=== PATIENT | male | born 1985 | race Caucasian/White ===

== ENCOUNTER → 2021-01-15 | Outpatient (CLI) | payer OTHER ==
[~2021-01-15] MED LIST: ASPIR 8181 MG PO; CARDURA8 MG PO; CLONIDINE HCL0.2 MG PO; COMBIVENT RESPIM4 GM INH; COZAAR 25MG TAB25 MG PO; HYDRALAZINE HC100 MG PO; HYDROCHLOROTHIA25 MG PO; IMDUR ER TAB 6060 MG PO; ISOSORBIDE MON120 MG PO; ISOSORBIDE MONO30 MG PO; LISINOPRIL40 MG PO; METOPROLOL TAR100 MG PO; MINIPRES CAP 2 M2 MG PO; NITROSTAT 0.40.4 MG SL; NORVASC10 MG PO; OXYBUTYNIN CHLO10 MG PO; SEROQUEL25 MG PO; SIMVASTATIN20 MG PO; TROSPIUM CHLORI20 MG PO; VITAMIN D350000 UNIT PO
== END ==
LOC: ECHO 09:00 → NM 09:00 → ECHO 10:46
DX: I71.9 Aortic aneurysm of unspecified site, without rupture (principal); R07.89 Other chest pain; I51.7 Cardiomegaly; R93.1 Abnormal findings on diagnostic imaging of heart and coronary circulation
CPT/HCPCS: ECHO; 93306

== ENCOUNTER → 2021-01-26 | Outpatient (CLI) | payer OTHER | LOC: CT 01-18 11:00 | DX: I71.2 Thoracic aortic aneurysm, without rupture (principal); R07.9 Chest pain, unspecified; R93.89 Abnormal findings on diagnostic imaging of other specified body structures | CPT/HCPCS: 36415; 71275; 82565; Q9967 ==

== ENCOUNTER 2021-03-27 14:27 | Observation (INO) | payer OTHER ==
[~2021-03-27] VITALS: Ht 180.3 cm; Wt 132.1 kg
[~2021-03-27 14:27] MED LIST changes: -COZAAR 25MG TAB25 MG PO; -ISOSORBIDE MON120 MG PO; -MINIPRES CAP 2 M2 MG PO; -SEROQUEL25 MG PO
[2021-03-27 15:44] LABS: HEMOGLOBIN 16.2 gm/dl (14.0-17.5); RED BLOOD COUNT 5.16 M/UL (4.20-5.50); WHITE BLOOD COUNT 6.3 K/UL (4.5-11.0)
[2021-03-27 17:03] LABS: BUN/CREATININE RATIO 14 (0-10)
[2021-03-27] MEDS ORDERED: SEROQUEL25 MG PO (23:21)
[2021-03-27] MEDS ORDERED: ISOSORBIDE MON120 MG PO (23:23)
[2021-03-27] MEDS ORDERED: MINIPRES CAP 2 M2 MG PO (23:24)
[2021-03-28] MEDS ORDERED: COZAAR 25MG TAB25 MG PO (12:27)
== END 2021-03-28 13:52 | disposition home or self-care (01) ==
LOC: ER1 14:27 → CDU 21:46 → M/S 21:46
PROVIDERS: Emergency Medicine; ADMIT Internal Medicine
DX: R07.89 Other chest pain (principal); I10 Essential (primary) hypertension; E66.01 Morbid (severe) obesity due to excess calories; I51.7 Cardiomegaly; J44.9 Chronic obstructive pulmonary disease, unspecified; F17.290 Nicotine dependence, other tobacco product, uncomplicated; F41.8 Other specified anxiety disorders; G47.33 Obstructive sleep apnea (adult) (pediatric); Z82.49 Family history of ischemic heart disease and other diseases of the circulatory system; Z82.3 Family history of stroke; Z99.81 Dependence on supplemental oxygen; Z79.899 Other long term (current) drug therapy; Z20.822 Contact with and (suspected) exposure to COVID-19; Z68.41 Body mass index [BMI] 40.0-44.9, adult
CPT/HCPCS: 36415; 71045; 71275; 80053; 80061; 82550; 82553; 83735; 83874; 83880; 84484; 85025; 85610; 85730; 93005; 99285; G0378; Q9967; U0002

== ENCOUNTER → 2021-09-14 | Outpatient (CLI) | payer OTHER ==
[~2021-09-14] MED LIST changes: +COZAAR 25MG TAB25 MG PO; +ISOSORBIDE MON120 MG PO; +MINIPRES CAP 2 M2 MG PO; +SEROQUEL25 MG PO
== END ==
LOC: CT 10:29
DX: I71.9 Aortic aneurysm of unspecified site, without rupture (principal); R91.8 Other nonspecific abnormal finding of lung field
CPT/HCPCS: 36415; 71275; 82565; Q9967

== ENCOUNTER → 2021-12-02 | Outpatient (CLI) | payer OTHER ==
[~2021-12-02] MED LIST changes: +ABILIFY 5 MG TAB5 MG PO; +ALISKIREN150 MG PO; +METOPROLOL TART50 MG PO
== END ==
LOC: EXRD 11:30
DX: N50.89 Other specified disorders of the male genital organs (principal); R93.812 Abnormal radiologic findings on diagnostic imaging of left testicle
CPT/HCPCS: 76870

== ENCOUNTER 2021-12-06 14:17 | Inpatient (IN) | payer OTHER ==
[~2021-12-06] VITALS: Ht 180.3 cm; Wt 138.3 kg
[~2021-12-06 14:17] MED LIST changes: -ABILIFY 5 MG TAB5 MG PO; -ALISKIREN150 MG PO; -METOPROLOL TART50 MG PO
[2021-12-06 15:02] LABS: HEMOGLOBIN 16.6 gm/dl (14.0-17.5); RED BLOOD COUNT 5.33 M/UL (4.20-5.50); WHITE BLOOD COUNT 7.4 K/UL (4.5-11.0)
[2021-12-06 15:28] LABS: BUN/CREATININE RATIO 16 (0-10)
[2021-12-06] MEDS ORDERED: ALISKIREN150 MG PO (21:21)
[2021-12-06] MEDS ORDERED: LISINOPRIL40 MG PO (21:23)
[2021-12-06] MEDS ORDERED: ABILIFY 5 MG TAB5 MG PO (21:23)
[2021-12-06] MEDS ORDERED: METOPROLOL TART50 MG PO (21:23)
[2021-12-07 03:30] LABS: HEMOGLOBIN 15.2 gm/dl (14.0-17.5); RED BLOOD COUNT 4.91 M/UL (4.20-5.50)
[2021-12-07 03:39] LABS: WHITE BLOOD COUNT 9.3 K/UL (4.5-11.0)
[2021-12-07 04:00] LABS: BUN/CREATININE RATIO 17 (0-10)
[2021-12-07] MEDS ORDERED: ISOSORBIDE MON120 MG PO (09:43)
[2021-12-07] MEDS ORDERED: ATORVASTATIN CA20 MG PO (09:43)
[2021-12-07] MEDS ORDERED: NORVASC10 MG PO (09:43)
[2021-12-07] MEDS ORDERED: ASPIRIN EC81 MG PO (09:43)
== END 2021-12-07 15:32 | disposition home or self-care (01) | DRG 287 ==
LOC: ER1 14:17 → PROG CARE 17:56
PROVIDERS: Internal Medicine; Physician Assistant Medical; ADMIT Internal Medicine Interventional Cardiology
PROC: 4A023N7 Measurement of Cardiac Sampling and Pressure, Left Heart, Percutaneous Approach (ICD-10-PCS; principal; 2021-12-06)
PROC: 3E063GC Introduction of Other Therapeutic Substance into Central Artery, Percutaneous Approach (ICD-10-PCS; 2021-12-06)
PROC: B2111ZZ Fluoroscopy of Multiple Coronary Arteries using Low Osmolar Contrast (ICD-10-PCS; 2021-12-06)
PROC: B24BZZ4 Ultrasonography of Heart with Aorta, Transesophageal (ICD-10-PCS; 2021-12-07)
DX: I20.1 Angina pectoris with documented spasm (principal); Z68.42 Body mass index [BMI] 45.0-49.9, adult; I10 Essential (primary) hypertension; Z20.822 Contact with and (suspected) exposure to COVID-19; E66.01 Morbid (severe) obesity due to excess calories; F32.A Depression, unspecified; G47.33 Obstructive sleep apnea (adult) (pediatric); F17.290 Nicotine dependence, other tobacco product, uncomplicated; E78.5 Hyperlipidemia, unspecified; I07.1 Rheumatic tricuspid insufficiency; F41.9 Anxiety disorder, unspecified; I71.2 Thoracic aortic aneurysm, without rupture; Z79.01 Long term (current) use of anticoagulants; Z79.82 Long term (current) use of aspirin; Z98.890 Other specified postprocedural states; Z82.49 Family history of ischemic heart disease and other diseases of the circulatory system; Z82.3 Family history of stroke; Z79.899 Other long term (current) drug therapy
CPT/HCPCS: ECHO; 36415; 71045; 80053; 80061; 80307; 81001; 82550; 82553; 82962; 83874; 84439; 84443; 84484; 85025; 85347; 85610; 85730; 93005; 93306; 99152; 99153; 99285; C1769; C1887; C1894; J0461; J1644; J2250; J2270; J2370; J3010; J7040; Q9957; Q9965; U0002

== ENCOUNTER 2021-12-11 13:12 | Emergency (ER) | payer OTHER ==
[~2021-12-11 13:12] MED LIST changes: +ABILIFY 5 MG TAB5 MG PO; +ALISKIREN150 MG PO; +ASPIRIN EC81 MG PO; +ATORVASTATIN CA20 MG PO; +METOPROLOL TART50 MG PO
[2021-12-11 13:37] LABS: HEMOGLOBIN 16.9 gm/dl (14.0-17.5); RED BLOOD COUNT 5.72 M/UL (4.20-5.50); WHITE BLOOD COUNT 9.8 K/UL (4.5-11.0)
[2021-12-11 14:02] LABS: BUN/CREATININE RATIO 14 (0-10)
[2021-12-11] MEDS ORDERED: PHENERGAN 25 MG25 M1 PO (18:34)
== END 2021-12-11 21:43 | disposition home or self-care (01) ==
LOC: ER1 13:12
PROVIDERS: Student in an Organized Health Care Education/Training Program
DX: R07.9 Chest pain, unspecified (principal); I10 Essential (primary) hypertension; R11.0 Nausea; R77.8 Other specified abnormalities of plasma proteins; E66.01 Morbid (severe) obesity due to excess calories; I20.1 Angina pectoris with documented spasm; E78.5 Hyperlipidemia, unspecified; F17.290 Nicotine dependence, other tobacco product, uncomplicated; F41.9 Anxiety disorder, unspecified; R00.1 Bradycardia, unspecified
CPT/HCPCS: 71045; 80053; 82550; 82553; 83874; 84484; 85025; 93005; 96374; 96375; 99285; J2270; J2550

== ENCOUNTER → 2021-12-22 | Outpatient (CLI) | payer OTHER ==
[~2021-12-22] MED LIST changes: +PHENERGAN 25 MG25 M1 PO
== END ==
LOC: HEART 5 08:49
DX: R00.2 Palpitations (principal)

== ENCOUNTER → 2022-01-05 | Outpatient (CLI) | payer OTHER | LOC: ECHO 08:45 | DX: R94.31 Abnormal electrocardiogram [ECG] [EKG] (principal) | CPT/HCPCS: ECHO; 93306 ==

== ENCOUNTER 2022-02-01 04:29 | Inpatient (IN) | payer OTHER ==
[~2022-02-01] VITALS: Ht 180.3 cm; Wt 146.0 kg
[~2022-02-01 04:29] MED LIST changes: -ABILIFY 5 MG TAB5 MG PO; -CLONIDINE HCL0.2 MG PO; -HYDRALAZINE HC100 MG PO; -HYDROCHLOROTHIA25 MG PO; -METOPROLOL TART50 MG PO; -NITROSTAT 0.40.4 MG SL
[2022-02-01 04:57] LABS: HEMOGLOBIN 16.6 gm/dl (14.0-17.5); RED BLOOD COUNT 5.35 M/UL (4.20-5.50); WHITE BLOOD COUNT 6.8 K/UL (4.5-11.0)
[2022-02-01 05:22] LABS: BUN/CREATININE RATIO 11 (0-10)
[2022-02-01] MEDS ORDERED: IBUPROFEN800 MG PO (17:33)
[2022-02-01] MEDS ORDERED: ISOSORBIDE MON120 MG PO (17:34)
[2022-02-01] MEDS ORDERED: FEXOFENADINE HC60 MG PO (17:35)
[2022-02-01] MEDS ORDERED: PROZAC 20 MG CA20 MG PO (17:38)
[2022-02-01] MEDS ORDERED: ROBAXIN 750 MG750 MG PO (17:41)
[2022-02-01] MEDS ORDERED: PROPRANOLOL HCL80 M1 PO (17:42)
[2022-02-01] MEDS ORDERED: QUETIAPINE FUMA25 MG PO (17:43)
[2022-02-01] MEDS ORDERED: FLOMAX 0.4 MG0.4 MG PO (17:44)
[2022-02-01] MEDS ORDERED: COZAAR 50MG TAB50 MG PO (17:46)
[2022-02-01] MEDS ORDERED: D3 + K2 DOTS 11 EACH PO (18:13)
[2022-02-01] MEDS ORDERED: ATORVASTATIN CA40 MG PO (20:13)
[2022-02-01] MEDS ORDERED: METOPROLOL TAR100 MG PO (21:23)
[2022-02-01] MEDS ORDERED: LISINOPRIL40 MG PO (21:23)
[2022-02-01] MEDS ORDERED: ABILIFY 5 MG TAB5 MG PO (21:23)
[2022-02-01] MEDS ORDERED: HYDRALAZINE HC100 MG PO (21:29)
[2022-02-01] MEDS ORDERED: NITROSTAT 0.40.4 MG SL (21:33)
[2022-02-01] MEDS ORDERED: CLONIDINE HCL0.2 MG PO (21:34)
[2022-02-01] MEDS ORDERED: HYDROCHLOROTHIA50 MG PO (21:37)
[2022-02-02 04:27] LABS: HEMOGLOBIN 14.8 gm/dl (14.0-17.5); RED BLOOD COUNT 4.85 M/UL (4.20-5.50)
[2022-02-02 04:33] LABS: WHITE BLOOD COUNT 14.4 K/UL (4.5-11.0)
[2022-02-02 04:52] LABS: BUN/CREATININE RATIO 15 (0-10)
[2022-02-03 04:10] LABS: HEMOGLOBIN 13.3 gm/dl (14.0-17.5); WHITE BLOOD COUNT 12.1 K/UL (4.5-11.0)
[2022-02-03 04:13] LABS: RED BLOOD COUNT 4.34 M/UL (4.20-5.50)
[2022-02-03 04:33] LABS: BUN/CREATININE RATIO 18 (0-10)
[2022-02-04 01:33] LABS: HEMOGLOBIN 13.5 gm/dl (14.0-17.5); RED BLOOD COUNT 4.37 M/UL (4.20-5.50); WHITE BLOOD COUNT 10.6 K/UL (4.5-11.0)
[2022-02-04 02:30] LABS: BUN/CREATININE RATIO 22 (0-10)
== END 2022-02-04 04:09 | disposition short-term general hospital (02) | DRG 915 ==
LOC: ER1 04:29 → CDU 08:25 → CCU 09:46
PROVIDERS: Physician Assistant; Physician Assistant Medical; ADMIT Internal Medicine
PROC: 3E0333Z Introduction of Anti-inflammatory into Peripheral Vein, Percutaneous Approach (ICD-10-PCS; principal; 2022-02-01)
PROC: 30233L1 Transfusion of Nonautologous Fresh Plasma into Peripheral Vein, Percutaneous Approach (ICD-10-PCS; 2022-02-01)
PROC: 0BH17EZ Insertion of Endotracheal Airway into Trachea, Via Natural or Artificial Opening (ICD-10-PCS; 2022-02-01)
PROC: 5A1945Z Respiratory Ventilation, 24-96 Consecutive Hours (ICD-10-PCS; 2022-02-01)
PROC: 0BC38ZZ Extirpation of Matter from Right Main Bronchus, Via Natural or Artificial Opening Endoscopic (ICD-10-PCS; 2022-02-01)
PROC: 0B9F8ZZ Drainage of Right Lower Lung Lobe, Via Natural or Artificial Opening Endoscopic (ICD-10-PCS; 2022-02-01)
PROC: 0B958ZZ Drainage of Right Middle Lobe Bronchus, Via Natural or Artificial Opening Endoscopic (ICD-10-PCS; 2022-02-01)
PROC: B24BZZZ Ultrasonography of Heart with Aorta (ICD-10-PCS; 2022-02-03)
DX: T78.3XXA Angioneurotic edema, initial encounter (principal); I21.A1 Myocardial infarction type 2; J18.9 Pneumonia, unspecified organism; Z20.822 Contact with and (suspected) exposure to COVID-19; J96.11 Chronic respiratory failure with hypoxia; I16.1 Hypertensive emergency; N45.2 Orchitis; E66.01 Morbid (severe) obesity due to excess calories; I10 Essential (primary) hypertension; T42.75XA Adverse effect of unspecified antiepileptic and sedative-hypnotic drugs, initial encounter; F41.9 Anxiety disorder, unspecified; F32.A Depression, unspecified; I25.10 Atherosclerotic heart disease of native coronary artery without angina pectoris; I71.4 Abdominal aortic aneurysm, without rupture; G47.33 Obstructive sleep apnea (adult) (pediatric); F17.290 Nicotine dependence, other tobacco product, uncomplicated; K59.09 Other constipation; I16.0 Hypertensive urgency; T38.0X5A Adverse effect of glucocorticoids and synthetic analogues, initial encounter; U07.0 Vaping-related disorder; D72.828 Other elevated white blood cell count; I45.81 Long QT syndrome; Z99.81 Dependence on supplemental oxygen; Z79.82 Long term (current) use of aspirin; Z91.02 Food additives allergy status; Z98.890 Other specified postprocedural states; Z82.61 Family history of arthritis; Z91.19 Patient's noncompliance with other medical treatment and regimen; Z82.49 Family history of ischemic heart disease and other diseases of the circulatory system; Z82.3 Family history of stroke; Z68.22 Body mass index [BMI] 22.0-22.9, adult
CPT/HCPCS: ECHO; 31500; 36415; 36430; 36600; 51702; 71045; 80048; 80053; 80202; 80307; 81001; 82550; 82553; 82785; 82803; 83520; 83735; 84484; 85025; 85027; 85730; 86160; 86850; 86900; 86901; 86927; 87070; 87081; 87086; 87205; 93005; 93306; 94002; 94003; 94640; 94760; 96374; 96375; 99285; C9113; J0171; J0330; J0360; J1100; J1200; J1335; J1644; J1650; J2060; J2185; J2250; J2270; J2704; J2920; J2930; J3010; J3030; J3370; J3475; J7030; J7070; P9017; U0002

== ENCOUNTER → 2022-05-04 | Outpatient (CLI) | payer OTHER ==
[~2022-05-04] MED LIST changes: +ABILIFY 5 MG TAB5 MG PO; +ATORVASTATIN CA40 MG PO; +CLONIDINE HCL0.2 MG PO; +COZAAR 50MG TAB50 MG PO; +D3 + K2 DOTS 11 EACH PO; +FEXOFENADINE HC60 MG PO; +FLOMAX 0.4 MG0.4 MG PO; +HYDRALAZINE HC100 MG PO; +HYDROCHLOROTHIA50 MG PO; +IBUPROFEN800 MG PO; +NITROSTAT 0.40.4 MG SL; +PROPRANOLOL HCL80 M1 PO; +PROZAC 20 MG CA20 MG PO; +QUETIAPINE FUMA25 MG PO; +ROBAXIN 750 MG750 MG PO
== END ==
LOC: SLEEP 14:10
DX: G47.33 Obstructive sleep apnea (adult) (pediatric) (principal)
CPT/HCPCS: 95811

== ENCOUNTER → 2022-07-12 | Outpatient (CLI) | payer OTHER | LOC: RAD 10:39 | DX: M54.50 Low back pain, unspecified (principal); M47.816 Spondylosis without myelopathy or radiculopathy, lumbar region | CPT/HCPCS: 72100 ==